=== PATIENT | male | born 1990 | race Caucasian/White ===

== ENCOUNTER 2019-03-20 11:42 | Emergency (ER) | payer SELFPAY ==
[2019-03-20] MEDS ORDERED: KETOROLAC 30 MG/ML INJ ONE (12:12)
[2019-03-20] MEDS ORDERED: PROMETHAZINE 25 MG TABLET ONE (12:18)
[2019-03-20 12:32] LABS: Urine Amorphous Sediment 1+ /HPF (NONE SEEN); Urine Bacteria <20 /HPF (NONE SEEN); Urine Culture Reflex Order NOT NEEDED; Urine Mucus 4+ /HPF (NONE SEEN); Urine RBC <5 /HPF (NONE SEEN)
--- NOTE | 2019-03-20 12:51 | RAD REPORT ---
EXAM DESCRIPTION: RAD - Chest Pa And Lat (2 Views) - 03/20/2019 12:46 pm CLINICAL HISTORY: Wheezing, cough, chest pain, back pain COMPARISON: None. TECHNIQUE: PA and lateral views of the chest were obtained. FINDINGS: The lungs are clear. Heart size is normal and central vasculature is within normal limit s. No pleural effusion or pneumothorax seen. No acute bony finding noted. No aortic abnormality. No free air in the diaphragm. IMPRESSION: No acute cardiopulmonary process.
--- NOTE | 2019-03-20 12:55 | EDPHYS ---
Physician Documentation [facility] Name: Segundo Miller Age: 28 yrs Sex: Male : 1990 Arrival Date: 03/20/2019 Time: 11:45 Bed 24 Private MD: ED Physician Doc Valladares HPI: 03/20 12:09 This 28 yrs old Male presents to ER via Ambulatory with complaints of Back snw Pain. 12:09 The patient presents with pain that is acute, with no known mechanism of injury. The snw symptoms are located in the thoracic spine and lumbar spine. Onset: The symptoms/episode began/occurred 5 day(s) ago. The pain radiates to the right gluteus donna. Associated signs and symptoms: The patient has no apparent associated signs or symptoms. The problem was sustained from unknown cause. Severity of symptoms: At their worst the symptoms were mild. The patient has not experienced similar symptoms in the past, but family has similar symptoms, Mom and Sibling dx with spinal stenosis and pt concerned for this. The patient has not recently seen a physician. Historical: - Allergies: 11:58 No Known Allergies; hj - PMHx: 11:58 None; hj - PSHx: 11:58 None; hj - Immunization history:: Adult Immunizations up to date. - Social history:: Smoking status: Patient uses tobacco products, smokes one-half pack cigarettes per day. - Ebola Screening: : Patient negative for fever greater than or equal to 101.5 degrees Fahrenheit, and additional compatible Ebola Virus Disease symptoms Patient denies exposure to infectious person Patient denies travel to an Ebola-affected area in the 21 days before illness onset No symptoms or risks identified at this time. ROS: 12:09 Constitutional: Negative for fever, chills, and weight loss, Eyes: Negative for injury, snw pain, redness, and discharge, ENT: Negative for injury, pain, and discharge, Neck: Negative for injury, pain, and swelling, Cardiovascular: Negative for chest pain, palpitations, and edema, Respiratory: Negative for shortness of breath, cough, wheezing, and pleuritic chest pain, Abdomen/GI: Negative for abdominal pain, nausea, vomiting, diarrhea, and constipation, : Negative for injury, bleeding, discharge, and swelling, MS/Extremity: Negative for injury and deformity, Skin: Negative for injury, rash, and discoloration, Neuro: Negative for headache, weakness, numbness, tingling, and seizure. 12:09 Back: Positive for pain at rest, pain with movement, of the thoracic area and lumbar area. Exam: 12:07 Head/Face: Normocephalic, atraumatic. Eyes: Pupils equal round and reactive to light, snw extra-ocular motions intact. Lids and lashes normal. Conjunctiva and sclera are non-icteric and not injected. Cornea within normal limits. Periorbital areas with no swelling, redness, or edema. ENT: Nares patent. No nasal discharge, no septal abnormalities noted. Tympanic membranes are normal and external auditory canals are clear. Oropharynx with no redness, swelling, or masses, exudates, or evidence of obstruction, uvula midline. Mucous membranes moist. Neck: Trachea midline, no thyromegaly or masses palpated, and no cervical lymphadenopathy. Supple, full range of motion without nuchal rigidity, or vertebral point tenderness. No Meningismus. Chest/axilla: Normal chest wall appearance and motion. Nontender with no deformity. No lesions are appreciated. Cardiovascular: Regular rate and rhythm with a normal S1 and S2. No gallops, murmurs, or rubs. Normal PMI, no JVD. No pulse deficits. Abdomen/GI: Soft, non-tender, with normal bowel sounds. No distension or tympany. No guarding or rebound. No evidence of tenderness throughout. Skin: Warm, dry with normal turgor. Normal color with no rashes, no lesions, and no evidence of cellulitis. MS/ Extremity: Pulses equal, no cyanosis. Neurovascular intact. Full, normal range of motion. Neuro: Awake and alert, GCS 15, oriented to person, place, time, and situation. Cranial nerves II-XII grossly intact. Motor strength 5/5 in all extremities. Sensory grossly intact. Cerebellar exam normal. Normal gait. Psych: Awake, alert, with orientation to person, place and time. Behavior, mood, and affect are within normal limits. 12:07 Constitutional: The patient appears alert, awake, anxious, uncomfortable. 12:07 Respiratory: the patient does not display signs of respiratory distress, Respirations: shallow respirations, Breath sounds: wheezing: that is moderate, right greater than left. 12:07 Back: pain, that is moderate, of the thoracic area and lumbar area, ROM is painful, CVA tenderness, is absent. Vital Signs: 11:58 BP 149 / 81; Pulse 82; Resp 18; Temp 97.8(TE); Pulse Ox 100% on R/A; Weight 99.79 kg; hj Height 6 ft. 2 in. (187.96 cm); Pain 8/10; 13:10 BP 131 / 81; Pulse 79; Resp 16 S; Temp 98(O); Pulse Ox 100% on R/A; ca1 11:58 Body Mass Index 28.25 (99.79 kg, 187.96 cm) hj MDM: 12:02 Patient medically screened. snw 12:08 Data reviewed: vital signs, nurses notes. Data interpreted: Pulse oximetry: on room air snw is 100 %. Interpretation: normal. Counseling: I had a detailed discussion with the patient and/or guardian regarding: the historical points, exam findings, and any diagnostic results supporting the discharge/admit diagnosis, the presence of at least one elevated blood pressure reading (>120/80) during this emergency department visit. 03/20 12:01 Order name: Urine Microscopic Only; Complete Time: 12:36 snw 03/20 12:23 Order name: Urine Dipstick--Ancillary (enter results) bd 03/20 12:01 Order name: Urine Dipstick-Ancillary (obtain specimen); Complete Time: 12:17 snw 03/20 12:07 Order name: Chest Pa And Lat (2 Views) XRAY; Complete Time: 12:53 snw Administered Medications: 12:17 Drug: Phenergan 25 mg Route: PO; ca1 12:30 Drug: TORadol 30 mg Route: IM; Site: right deltoid; ca1 Disposition: 15:22 Co-signature as Attending Physician, Doc Valladares MD. rn Disposition: 03/20/19 12:54 Discharged to Home. Impression: Pain in thoracic spine. - Condition is Stable. - Discharge Instructions: Back Pain, Adult, Hypertension, Steps to Quit Smoking, Smoking Hazards, Thoracic Strain. - Prescriptions for Mobic 7.5 mg Oral Tablet - take 1 tablet by ORAL route once daily take with food; 20 tablet. promethazine 25 mg Oral Tablet - take 1 tablet by ORAL route every 6 hours As needed; 20 tablet. - Medication Reconciliation Form, Thank You Letter, Antibiotic Education, Prescription Opioid Use form. - Follow up: Private Physician; When: 1 week; Reason: Recheck today's complaints, Continuance of care, Re-evaluation by your physician. Follow up: Emergency Department; When: As needed; Reason: Worsening of condition. Signatures: Dispatcher [employer] EDMS Angelito Radha, ACCOUNTS PAYABLE TECHNICIAN-C ACCOUNTS PAYABLE TECHNICIAN-Csnw Doc Valladares MD MD rn Joaquin, Henry, RN RN Yael Quiroz RN RN ca1 Corrections: (The following items were deleted from the chart) 13:17 12:54 03/20/2019 12:54 Discharged to Home. Impression: Pain in thoracic spine. ca1 Condition is Stable. Forms are Medication Reconciliation Form, Thank You Letter, Antibiotic Education, Prescription Opioid Use. Follow up: Private Physician; When: 1 week; Reason: Recheck today's complaints, Continuance of care, Re-evaluation by your physician. Follow up: Emergency Department; When: As needed; Reason: Worsening of condition. snw
--- NOTE | 2019-03-20 12:55 | ER ---
Nurse's Notes [facility] Name: Segundo Miller Age: 28 yrs Sex: Male : 1990 Arrival Date: 03/20/2019 Time: 11:45 Bed 24 Private MD: Diagnosis: Pain in thoracic spine Presentation: 03/20 11:56 Presenting complaint: Patient states: i have this sever back pain for 5 days now, hj denies trauma to the area, pain radiates to the leg; pain is 8/10;. Transition of care: patient was not received from another setting of care. Onset of symptoms was March 20, 2019. Risk Assessment: Do you want to hurt yourself or someone else? Patient reports no desire to harm self or others. Initial Sepsis Screen: Does the patient meet any 2 criteria? No. Patient's initial sepsis screen is negative. Does the patient have a suspected source of infection? No. Patient's initial sepsis screen is negative. Care prior to arrival: None. 11:56 Method Of Arrival: Ambulatory 11:56 Acuity: NATHALIA 4 hj Historical: - Allergies: 11:58 No Known Allergies; hj - PMHx: 11:58 None; hj - PSHx: 11:58 None; hj - Immunization history:: Adult Immunizations up to date. - Social history:: Smoking status: Patient uses tobacco products, smokes one-half pack cigarettes per day. - Ebola Screening: : Patient negative for fever greater than or equal to 101.5 degrees Fahrenheit, and additional compatible Ebola Virus Disease symptoms Patient denies exposure to infectious person Patient denies travel to an Ebola-affected area in the 21 days before illness onset No symptoms or risks identified at this time. Screenin:10 Abuse screen: Denies threats or abuse. Denies injuries from another. Nutritional ca1 screening: No deficits noted. Tuberculosis screening: No symptoms or risk factors identified. Fall Risk None identified. Assessment: 12:10 General: Appears in no apparent distress. comfortable, Behavior is calm, cooperative, ca1 appropriate for age. Pain: Complains of pain in lumbar area and thoracic area Pain radiates to right leg and left leg Pain currently is 8 out of 10 on a pain scale. Pain began 5 days ago. Neuro: Level of Consciousness is awake, alert, obeys commands, Oriented to person, place, time, situation. Cardiovascular: Heart tones S1 S2 present Capillary refill < 3 seconds Patient's skin is warm and dry. Respiratory: Airway is patent Respiratory effort is even, unlabored, Respiratory pattern is regular, symmetrical, Breath sounds are clear bilaterally. GI: Abdomen is round non-distended, Bowel sounds present X 4 quads. Abd is soft and non tender X 4 quads. : No deficits noted. No signs and/or symptoms were reported regarding the genitourinary system. EENT: No deficits noted. No signs and/or symptoms were reported regarding the EENT system. Derm: Skin is intact, is healthy with good turgor, Skin is pink, warm \T\ dry. Musculoskeletal: Circulation, motion, and sensation intact. Capillary refill < 3 seconds, Range of motion: intact in all extremities. 13:10 Reassessment: Patient appears in no apparent distress at this time. Patient and/or ca1 family updated on plan of care and expected duration. Pain level reassessed. Patient is alert, oriented x 3, equal unlabored respirations, skin warm/dry/pink. Vital Signs: 11:58 BP 149 / 81; Pulse 82; Resp 18; Temp 97.8(TE); Pulse Ox 100% on R/A; Weight 99.79 kg; hj Height 6 ft. 2 in. (187.96 cm); Pain 8/10; 13:10 BP 131 / 81; Pulse 79; Resp 16 S; Temp 98(O); Pulse Ox 100% on R/A; ca1 11:58 Body Mass Index 28.25 (99.79 kg, 187.96 cm) ED Course: 11:45 Patient arrived in ED. rg4 11:48 Radha Eaton FNP-C is PHCP. snw 11:48 Doc Valladares MD is Attending Physician. snw 11:57 Triage completed. hj 11:58 Arm band placed on left wrist. hj 12:01 Yael Quiroz, BEHZAD is Primary Nurse. ca1 12:10 Patient has correct armband on for positive identification. Bed in low position. Call ca1 light in reach. Side rails up X 1. 12:10 No provider procedures requiring assistance completed. ca1 12:12 Urine collected: clean catch specimen, clear, beatriz colored. jp3 12:45 X-ray completed. Patient tolerated procedure well. Patient moved back from radiology. 1 12:48 Chest Pa And Lat (2 Views) XRAY In Process Unspecified. EDMS 13:16 Patient did not have IV access during this emergency room visit. ca1 Administered Medications: 12:17 Drug: Phenergan 25 mg Route: PO; ca1 12:30 Drug: TORadol 30 mg Route: IM; Site: right deltoid; ca1 Outcome: 12:54 Discharge ordered by . snmilka 13:16 Discharged to home ambulatory, with family. ca1 13:16 Condition: stable 13:16 Discharge instructions given to patient, Instructed on discharge instructions, follow up and referral plans. medication usage, Demonstrated understanding of instructions, follow-up care, medications, Prescriptions given X 2. 13:17 Patient left the ED. ca1 Signatures: Dispatcher [employer] EDMS Radha Eaton, US ADMINISTRATIVE LAW JUDGE-C US ADMINISTRATIVE LAW JUDGE-Csnw Kristen Kwok 1 Jesus Wheeler, RN RN Kellen Nath rg4 Jagdeep Escalona 3 Yael Quiroz RN RN ca1 Corrections: (The following items were deleted from the chart) 12:00 11:58 Pulse 82bpm; Resp 18bpm; Pulse Ox 100% RA; Temp 97.8F Temporal; 99.79 kg; Height hj 6 ft. 2 in.; BMI: 28.2; Pain 8/10; hj
[2019-03-20 14:11] LABS: Urine Blood NEGATIVE (NEG); Urine Glucose NEGATIVE (NEG); Urine Protein 1+ (NEG); Urine Specific Gravity 1.025 (1.005-1.030); Urine pH 5.5 (5.0-7.0)
== END 2019-03-20 13:17 | disposition home or self-care (01) ==
LOC: ER 11:42
DX: M54.6 Pain in thoracic spine (principal); M54.5 Low back pain; F17.210 Nicotine dependence, cigarettes, uncomplicated
CPT/HCPCS: 71046; 81003; 81015; 96372; 99284

== ENCOUNTER 2019-04-20 18:54 | Emergency (ER) | payer SELFPAY ==
--- NOTE | 2019-04-20 20:11 | ER ---
Nurse's Notes [facility] Name: Segundo Miller Age: 28 yrs Sex: Male : 1990 Arrival Date: 04/20/2019 Time: 18:56 Bed 18 Private MD: Diagnosis: Pedal Edema Presentation: 04/20 19:10 Presenting complaint: Patient states: bilateral foot swelling since last night. pt ak1 stated he has had this happen before and he rest, elevates and ice them. pt told his boss, boss stated he must have doctor note to take days off and return to work. Transition of care: patient was not received from another setting of care. Onset of symptoms was April 20, 2019. Risk Assessment: Do you want to hurt yourself or someone else? Patient reports no desire to harm self or others. Initial Sepsis Screen: Does the patient meet any 2 criteria? No. Patient's initial sepsis screen is negative. Does the patient have a suspected source of infection?. Care prior to arrival: None. 19:10 Acuity: NATHALIA 3 ak1 19:10 Method Of Arrival: Ambulatory ak1 Triage Assessment: 19:12 General: Appears in no apparent distress. Behavior is calm, cooperative. ak1 Historical: - Allergies: 19:12 No Known Allergies; ak1 - Home Meds: 19:12 None [Active]; ak1 - PMHx: 19:12 None; ak1 - PSHx: 19:12 None; ak1 - Immunization history:: Adult Immunizations unknown. - Social history:: Smoking status: Patient uses tobacco products, smokes two packs cigarettes per day. - Ebola Screening: : No symptoms or risks identified at this time. Screenin:20 Abuse screen: Denies threats or abuse. Denies injuries from another. Nutritional aa1 screening: No deficits noted. Tuberculosis screening: No symptoms or risk factors identified. Fall Risk None identified. Assessment: 19:20 General: Appears in no apparent distress. comfortable, Behavior is calm, cooperative, aa1 appropriate for age. Pain: Complains of pain in right foot and left foot Quality of pain is described as aching. Neuro: Level of Consciousness is awake, alert, obeys commands, Oriented to person, place, time, situation, Moves all extremities. Full function Gait is steady. Cardiovascular: Denies chest pain, palpitations, shortness of breath, Heart tones S1 S2 present Rhythm is regular. Respiratory: Airway is patent Respiratory effort is even, unlabored, Respiratory pattern is regular, symmetrical. GI: No signs and/or symptoms were reported involving the gastrointestinal system. : No signs and/or symptoms were reported regarding the genitourinary system. EENT: No signs and/or symptoms were reported regarding the EENT system. Derm: Skin is intact, is healthy with good turgor, Skin is pink, warm \T\ dry. Musculoskeletal: Circulation, motion, and sensation intact. Capillary refill < 3 seconds, Swelling present in right foot and left foot. 20:18 Reassessment: Patient appears in no apparent distress at this time. Patient is alert, aa1 oriented x 3, equal unlabored respirations, skin warm/dry/pink. Discussed d/c \T\ f/u instructions with pt; denies questions or concerns at this time. Ambulatory to lobby with steady gait. Vital Signs: 19:10 BP 158 / 89; Pulse 86; Resp 18; Temp 97.4; Pulse Ox 97% on R/A; Weight 108.86 kg (R); ak1 Height 6 ft. 1 in. (185.42 cm) (R); Pain 2/10; 19:57 BP 146 / 93; Pulse 74; Resp 18; Pulse Ox 97% on R/A; Pain 2/10; aa1 20:18 BP 136 / 81; Pulse 75; Resp 18; Temp 97.6; Pulse Ox 98% on R/A; Pain 2/10; aa1 19:10 Body Mass Index 31.66 (108.86 kg, 185.42 cm) ak1 ED Course: 18:56 Patient arrived in ED. rg4 19:10 Arm band placed on Patient placed in waiting room, Patient notified of wait time. ak1 19:12 Triage completed. ak1 19:20 Patient has correct armband on for positive identification. Placed in gown. Bed in low aa1 position. Call light in reach. Pulse ox on. NIBP on. 19:54 Azra Ace RN is Primary Nurse. aa1 19:55 Pérez Dukes PA is PHCP. jr8 19:55 Asael Marrufo MD is Attending Physician. jr8 20:18 No provider procedures requiring assistance completed. Patient did not have IV access aa1 during this emergency room visit. Administered Medications: No medications were administered Outcome: 20:10 Discharge ordered by . smooth 20:18 Discharged to home ambulatory. aa1 20:18 Condition: good 20:18 Discharge instructions given to patient, Instructed on discharge instructions, follow up and referral plans. Demonstrated understanding of instructions, follow-up care. 20:20 Patient left the ED. aa1 Signatures: Azra Ace RN RN aa1 Pérez Dukes PA PA jr8 aPulina Kyle RN RN ak1 Kellen Alfaro rg4
--- NOTE | 2019-04-20 20:12 | EDPHYS ---
Physician Documentation [facility] Name: Segundo Miller Age: 28 yrs Sex: Male : 1990 Arrival Date: 04/20/2019 Time: 18:56 Bed 18 Private MD: ED Physician Asael Marrufo HPI: 04/20 20:07 This 28 yrs old Male presents to ER via Ambulatory with complaints of Foot jr8 Pain, Swelling Of Feet. 20:07 Onset: The symptoms/episode began/occurred acutely, yesterday. Modifying factors: The jr8 symptoms are alleviated by elevating leg, OTC meds, the symptoms are aggravated by weight bearing. Associated signs and symptoms: The patient has no apparent associated signs or symptoms. Severity of symptoms: At their worst the symptoms were mild, in the emergency department the symptoms are unchanged. The patient has experienced similar episodes in the past, a few times. The patient has not recently seen a physician. Patient stated that he works in [employer] and is on his feet all day. Occasionally has swelling in feet. Could not fit into shoes. Tried to go to work to get a couple of days off but required him to have work note. Denies any other symptoms. Historical: - Allergies: 19:12 No Known Allergies; ak1 - Home Meds: 19:12 None [Active]; ak1 - PMHx: 19:12 None; ak1 - PSHx: 19:12 None; ak1 - Immunization history:: Adult Immunizations unknown. - Social history:: Smoking status: Patient uses tobacco products, smokes two packs cigarettes per day. - Ebola Screening: : No symptoms or risks identified at this time. ROS: 20:07 Eyes: Negative for injury, pain, redness, and discharge, ENT: Negative for injury, jr8 pain, and discharge, Neck: Negative for injury, pain, and swelling, Cardiovascular: Negative for chest pain, palpitations. Positive for pedal edema Respiratory: Negative for shortness of breath, cough, wheezing, and pleuritic chest pain, Abdomen/GI: Negative for abdominal pain, nausea, vomiting, diarrhea, and constipation, Back: Negative for injury and pain, MS/Extremity: Negative for injury and deformity, Skin: Negative for injury, rash, and discoloration, Neuro: Negative for headache, weakness, numbness, tingling, and seizure. Exam: 20:07 Eyes: Pupils equal round and reactive to light, extra-ocular motions intact. Lids and jr8 lashes normal. Conjunctiva and sclera are non-icteric and not injected. Cornea within normal limits. Periorbital areas with no swelling, redness, or edema. ENT: Nares patent. No nasal discharge, no septal abnormalities noted. Tympanic membranes are normal and external auditory canals are clear. Oropharynx with no redness, swelling, or masses, exudates, or evidence of obstruction, uvula midline. Mucous membranes moist. Neck: Trachea midline, no thyromegaly or masses palpated, and no cervical lymphadenopathy. Supple, full range of motion without nuchal rigidity, or vertebral point tenderness. No Meningismus. Respiratory: Lungs have equal breath sounds bilaterally, clear to auscultation and percussion. No rales, rhonchi or wheezes noted. No increased work of breathing, no retractions or nasal flaring. Abdomen/GI: Soft, non-tender, with normal bowel sounds. No distension or tympany. No guarding or rebound. No evidence of tenderness throughout. Back: No spinal tenderness. No costovertebral tenderness. Full range of motion. Skin: Warm, dry with normal turgor. Normal color with no rashes, no lesions, and no evidence of cellulitis. MS/ Extremity: Pulses equal, no cyanosis. Neurovascular intact. Full, normal range of motion. Neuro: Awake and alert, GCS 15, oriented to person, place, time, and situation. Cranial nerves II-XII grossly intact. Motor strength 5/5 in all extremities. Sensory grossly intact. Cerebellar exam normal. Normal gait. 20:07 Cardiovascular: Rate: normal, Rhythm: regular, Pulses: Pulses are 2+ in right radial artery and left radial artery. Heart sounds: normal, normal S1and S2, no S3 or S4, no murmur, no rub, no gallop, Edema: pedal edema, that is moderate, JVD: is not appreciated. Vital Signs: 19:10 BP 158 / 89; Pulse 86; Resp 18; Temp 97.4; Pulse Ox 97% on R/A; Weight 108.86 kg (R); ak1 Height 6 ft. 1 in. (185.42 cm) (R); Pain 2/10; 19:57 BP 146 / 93; Pulse 74; Resp 18; Pulse Ox 97% on R/A; Pain 2/10; aa1 20:18 BP 136 / 81; Pulse 75; Resp 18; Temp 97.6; Pulse Ox 98% on R/A; Pain 2/10; aa1 19:10 Body Mass Index 31.66 (108.86 kg, 185.42 cm) ak1 MDM: 19:56 Patient medically screened. jr8 20:07 Data reviewed: vital signs, nurses notes. Data interpreted: Pulse oximetry: on room air jr8 is 97 %. Interpretation: normal. Counseling: I had a detailed discussion with the patient and/or guardian regarding: the historical points, exam findings, and any diagnostic results supporting the discharge/admit diagnosis, the need for outpatient follow up, a family practitioner, to return to the emergency department if symptoms worsen or persist or if there are any questions or concerns that arise at home. ED course: Recommended compression stockings which patient stated that he would get . Administered Medications: No medications were administered Disposition: 04/20/19 20:10 Discharged to Home. Impression: Pedal Edema. - Condition is Stable. - Discharge Instructions: Venous Stasis or Chronic Venous Insufficiency, Form - Return To Work, Peripheral Edema. - Medication Reconciliation Form, Thank You Letter, Antibiotic Education, Prescription Opioid Use, Work release form form. - Follow up: Private Physician; When: As needed; Reason: Recheck today's complaints, Continuance of care, Re-evaluation by your physician. Addendum: 04/24/2019 08:23 Co-signature as Attending Physician, Asael Marrufo MD I agree with the assessment and c melton plan of care. Signatures: Azra Ace, RN RN aa1 Asael Marrufo MD MD cha Roszak, Josh, PA PA jr8 Paulina Kyle, RN RN ak1 Corrections: (The following items were deleted from the chart) 04/20 20:20 20:10 04/20/2019 20:10 Discharged to Home. Impression: Pedal Edema. Condition is aa1 Stable. Forms are Medication Reconciliation Form, Thank You Letter, Antibiotic Education, Prescription Opioid Use. Follow up: Private Physician; When: As needed; Reason: Recheck today's complaints, Continuance of care, Re-evaluation by your physician. jr8
[2019-04-20 22:52] VITALS: TEMP 97.4; O2SAT 97
[2019-04-20 22:53] VITALS: BP 146/93
== END 2019-04-20 20:20 | disposition home or self-care (01) ==
LOC: ER 18:54
DX: R60.9 Edema, unspecified (principal); F17.210 Nicotine dependence, cigarettes, uncomplicated
CPT/HCPCS: 99283